=== PATIENT | male | born 1965 | race Two or more races ===

== ENCOUNTER 2017-07-06 13:38 | Emergency (ER) | payer BC ==
[~2017-07-06] VITALS: Ht 185.4 cm; Wt 108.4 kg
--- NOTE | 2017-07-06 15:15 | Diagnostic Imaging Report ---
EXAMINATION: CHEST 2 VIEWS INDICATION: \S\FEVER/FLU LIKE SYMPTOM COMPARISON: None FINDINGS: PA and lateral views TUBES and LINES: None. LUNGS: Lungs are well inflated. Calcified granuloma in the left midlung. Lungs are clear. There is no evidence of pneumonia or pulmonary edema. PLEURA: No pleural effusion or pneumothorax. HEART AND MEDIASTINUM: The cardiomediastinal silhouette is unremarkable. BONES AND SOFT TISSUES: No acute osseous lesion. Soft tissues are unremarkable. UPPER ABDOMEN: No free air under the diaphragm. IMPRESSION: No acute thoracic abnormality. Signed by: Dr. Rashad Cortez M.D. on 07/06/2017 3:11 PM
--- NOTE | 2017-07-06 15:57 | Diagnostic Imaging Report ---
History: Fall, pain Comparison studies:None Technique: Axial images were obtained to the vertex and maxillofacial region. Coronal and sagittal images reconstructed from the axial data. Intravenous contrast: None Findings: Scalp/skull: No abnormalities. No fractures. Lucent lesion with trabecular patern is seen in the anterior aspect of the right parietal bone, related to hemangioma . Extra-axial spaces: No masses. No fluid collections. Brain sulci: Appropriate for age. Ventricles: Normal in size and configuration. No hydrocephalus. Parenchyma: No abnormal densities. No masses, hemorrhage, acute or chronic cortical vascular insults. Sellar/suprasellar region: No abnormalities Craniocervical junction: Patent foramen magnum. No Chiari one malformation. Maxillofacial CT: Soft tissues: No abnormalities. Bones: No fractures or bone abnormalities. Orbits: Globes: Intact Extra or intraconal abnormalities: None. Paranasal sinuses: Mild mucosal thickening in bilateral maxillary and right ethmoid sinuses, secondary to nonspecific inflammatory changes. Obliteration of the bilateral osteomeatal units. Incidental findings: Right septal deviation with ipsilateral spur. Impression: Head CT: 1. No acute intracranial abnormality. Maxillofacial CT: 1. Nonspecific inflammatory changes of the bilateral maxillary and right ethmoid sinuses. Obliteration of the bilateral osteomeatal units 2. Left septal deviation and ipsilateral spur. Signed by: DR Deric East M.D. on 07/06/2017 3:53 PM
== END 2017-07-06 16:15 | disposition home or self-care (01) ==
LOC: ER 13:38
DX: R05 Cough (principal); J09.X2 Influenza due to identified novel influenza A virus with other respiratory manifestations; F17.210 Nicotine dependence, cigarettes, uncomplicated
CPT/HCPCS: 70450; 70486; 71020; 87400; 99284